=== PATIENT | male | born 1975 | race Caucasian/White ===

== ENCOUNTER → 2017-06-01 | Outpatient (CLI) | payer OTHER ==
[2017-06-01 09:49] LABS: BLOOD UREA NITROGEN 20 mg/dL (7-18)
[2017-06-01 10:01] LABS: ASPARTATE AMINO TRANSFERASE 19 U/L (15-37)
== END | disposition home or self-care (01) ==
LOC: LAB 09:24
PROVIDERS: ATTEND Family Medicine
DX: Z00.01 Encounter for general adult medical examination with abnormal findings (principal); B00.1 Herpesviral vesicular dermatitis; E78.5 Hyperlipidemia, unspecified; I86.1 Scrotal varices; R73.03 Prediabetes; E78.00 Pure hypercholesterolemia, unspecified
CPT/HCPCS: 36415; 80053; 80061; 82306; 83036; 84153; 84443; 85025; G0103

== ENCOUNTER → 2017-12-17 | Outpatient (CLI) | payer OTHER ==
[~2017-12-17] MED LIST: CHOL500015 PO; LACT1CAP11 PO; MULT-224 PO; OMEG1CAP6 PO; [UNRECOGNIZED DRUG - OTHER] PO
== END ==
LOC: STAR 14:15
PROVIDERS: ATTEND Thoracic Surgery (Cardiothoracic Vascular Surgery)
DX: Z02.9 Encounter for administrative examinations, unspecified (principal)

== ENCOUNTER 2017-12-22 05:40 | Day surgery (SDC) | payer OTHER ==
[~2017-12-22] VITALS: Ht 181.6 cm; Wt 84.2 kg
[2017-12-22] MEDS ORDERED: LACTATED RINGERS 1,000 ML IV SCH ×2 (06:16→08:19)
[2017-12-22 06:20] VITALS: BP 113/74
[2017-12-22] MEDS ORDERED: BUPIVACAINE/PF 0.5% ONE (06:54)
[2017-12-22] MEDS ORDERED: EPINEPHRINE 1 MG/ML, 1ML ONE (06:54)
[2017-12-22] MEDS ORDERED: LIDOCAINE-MPF 2% ,5ML ONE (07:04)
[2017-12-22] MEDS ORDERED: PROPOFOL 10 MG/ML, 20ML ONE (07:04)
[2017-12-22] MEDS ORDERED: ONDANSETRON 2MG/ML, 2ML ONE ×2 (07:07)
[2017-12-22] MEDS ORDERED: DEXAMETHASONE 4 MG/ML, 1ML ONE ×3 (07:08)
[2017-12-22] MEDS ORDERED: BUPIVACAINE/PF-EPI 0.5% 1:200K IM ONE (07:19)
[2017-12-22] MEDS ORDERED: ROCURONIUM 10 MG/ML,10ML ONE (07:31)
[2017-12-22] MEDS ORDERED: CEFAZOLIN 1,000 MG ONE ×2 (07:40)
[2017-12-22] MEDS ORDERED: FENTANYL PF 100 MCG/2ML ONE ×2 (07:50→08:26)
[2017-12-22] MEDS ORDERED: KETOROLAC 30 MG/1 ML ONE (08:26)
[2017-12-22] MEDS ORDERED: ACETAMINOPHEN 650 MG/20.3 ML UDC ONE (08:26)
[2017-12-22] MEDS ORDERED: OXYcodone 5 MG/5 ML ORAL.SOL UDC ONE (08:27)
[2017-12-22] MEDS ORDERED: OXYcodone 5 MG/5 ML ORAL.SOL UDC PO PRN (08:30)
[2017-12-22] MEDS ORDERED: ACETAMINOPHEN 325 MG TABLET PO PRN (08:30)
[2017-12-22] MEDS ORDERED: MEPERIDINE/PF 25MG/0.5ML IVPush PRN (08:30)
[2017-12-22] MEDS ORDERED: HYDROcodone/APAP 5/325 TABLET PO PRN (08:30)
[2017-12-22] MEDS ORDERED: HYDROcodone/APAP 7.5-325MG/15ML UDC PO PRN (08:30)
[2017-12-22] MEDS ORDERED: morphine SULFATE 10 MG/ML, 1ML IVPush PRN (08:30)
[2017-12-22] MEDS ORDERED: ONDANSETRON 2MG/ML, 2ML IVPush PRN ×2 (08:30)
[2017-12-22] MEDS ORDERED: KETOROLAC 30 MG/1 ML IVPush PRN (08:30)
[2017-12-22] MEDS ORDERED: morphine SULFATE 10 MG/ML, 1ML IV PRN (08:30)
[2017-12-22] MEDS: FENTANYL PF 100 MCG/2ML IV PRN ×2 (08:33→08:44)
== END 2017-12-22 11:10 | disposition home or self-care (01) ==
LOC: OUT 05:40
PROVIDERS: ATTEND Thoracic Surgery (Cardiothoracic Vascular Surgery)
DX: K40.90 Unilateral inguinal hernia, without obstruction or gangrene, not specified as recurrent (principal); E78.5 Hyperlipidemia, unspecified; Z98.890 Other specified postprocedural states; Z98.52 Vasectomy status; Z72.89 Other problems related to lifestyle
CPT/HCPCS: 49650; C1781; J0171; J0690; J1100; J1885; J2405; J2704; J3010; J3490; J7120

== ENCOUNTER 2018-01-13 06:10 | Day surgery (SDC) | payer OTHER ==
[~2018-01-13] VITALS: Ht 181.6 cm; Wt 85.0 kg
[2018-01-13] MEDS ORDERED: SODIUM CHLORIDE 0.9% 1,000 ML IV SCH (07:06)
[2018-01-13 07:31] VITALS: BP 106/67
[2018-01-13] MEDS ORDERED: MIDAZOLAM 1 MG/ML, 2ML ONE (07:53)
[2018-01-13] MEDS ORDERED: FENTANYL PF 100 MCG/2ML ONE (07:53)
== END 2018-01-13 10:15 ==
LOC: OUT 06:10
PROVIDERS: ATTEND Internal Medicine Gastroenterology
DX: Z12.11 Encounter for screening for malignant neoplasm of colon (principal); D12.3 Benign neoplasm of transverse colon; K63.5 Polyp of colon; K57.30 Diverticulosis of large intestine without perforation or abscess without bleeding; Z83.71 Family history of colonic polyps; Z80.0 Family history of malignant neoplasm of digestive organs
CPT/HCPCS: 45385; 88305; 99152; 99153; J2250; J3010; J7030

== ENCOUNTER 2019-04-25 19:07 | Emergency (ER) | payer OTHER ==
[~2019-04-25] VITALS: Ht 180.3 cm; Wt 78.0 kg
[~2019-04-25 19:07] MED LIST changes: -MULT-224 PO; +MULT-642 PO
[2019-04-25] MEDS ORDERED: PROMETHAZINE 25 MG/ML, 1ML ONE ×2 (19:15→19:22)
[2019-04-25 19:26] LABS: BASOPHILS # (AUTO) 0.01 x10^3/uL (0-0.1); BASOPHILS % (AUTO) 0 % (0-1); EOSINOPHILS # (AUTO) 0.06 x10^3/uL (0-0.4); EOSINOPHILS % (AUTO) 1 % (1-7); LYMPHOCYTES # (AUTO) 3.68 x10^3/uL (1-3.4); LYMPHOCYTES % (AUTO) 40 % (22-44); MD NO; MEAN CORPUSCULAR HEMOGLOBIN 30.7 pg (27.5-34.5); MEAN PLATELET VOLUME 7.2 fL (7.4-10.4); MONOCYTES # (AUTO) 0.72 x10^3/uL (0.2-0.8); MONOCYTES % (AUTO) 8 % (2-9); NEUTROPHILS # (AUTO) 4.81 x10^3/uL (1.8-6.8); NEUTROPHILS % (AUTO) 52 % (42-75); PLATELET COUNT 236 x10^3/uL (130-400); RED BLOOD COUNT 5.16 x10^6/uL (4.38-5.82); RED CELL DISTRIBUTION WIDTH 12.7 % (9.4-14.8)
[2019-04-25 19:28] VITALS: BP 145/92
[2019-04-25] MEDS ORDERED: PLEASE ENTER HEIGHT AND WEIGHT MC SCH (19:30)
[2019-04-25] MEDS ORDERED: SODIUM CHLORIDE FLUSH 10ML SYR IVF ONE (19:30)
[2019-04-25] MEDS ORDERED: DIAZEPAM 5 MG/ML, 10ML VIAL IV ONE (19:30)
[2019-04-25] MEDS ORDERED: PROMETHAZINE 25 MG/ML, 1ML IM ONE (19:30)
[2019-04-25] MEDS ORDERED: ONDANSETRON 2MG/ML, 2ML IVPush ONE (19:30)
--- NOTE | 2019-04-25 19:31 | NUR ---
PT ARRIVES TO ED WITH VERTIGO. 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 PT REPORTS THAT HE BEACAME NAUSEAS. PT REPORTS THAT HE WAS SEEN AT LAST WEEK AND HAD MODERATE AMOUNT OF FLUID BUILD UP IN POSTERIOR OF HIS RIGHT EAR. PT DENIES TRUAMA. PT DENIES VISION CHANGES. PT HAS GOOD CENTRAL PULSES AND CAP REFILL UNDER 3 SECONDS. PT CONNECTED TO ALL MONITORS AND CALL LIGHT IN REACH. AWIAITNG FURTHER ORDERS. PIVF STARTED AND LARGE BORE PIV HAS BEEN PLACED. CALL LIGHT IN REACH AND FALL TEACHIGN PROVIDED.
[2019-04-25 19:34] LABS: ALBUMIN 4.8 g/dL (3.4-5.0); ANION GAP 10 mmol/L (5-15); CALCIUM 9.4 mg/dL (8.5-10.1); CHLORIDE 103 mmol/L (98-107)
[2019-04-25 19:38] LABS: TROPONIN I < 0.015 ng/mL (0.000-0.045)
--- NOTE | 2019-04-25 20:00 | NUR ---
PT MEDICATED AND RESTING .
[2019-04-25] MEDS ORDERED: POTASSIUM CHLORIDE 20 MEQ TAB.ER.PRT ONE (20:46)
[2019-04-25] MEDS ORDERED: POTASSIUM CHLORIDE 20 MEQ TAB.ER.PRT PO ONE (21:00)
--- NOTE | 2019-04-25 21:00 | NUR ---
PT MEDICATED PER EMAR.
--- NOTE | 2019-04-25 21:30 | NUR ---
PT GIVEN KDUR.
--- NOTE | 2019-04-25 22:10 | NUR ---
Patient/Caregiver given discharge instructions and they have confirmed that they understand the instructions. Patient ambulatory with steady gait.
== END 2019-04-25 22:12 ==
LOC: ED 22:06
DX: H81.391 Other peripheral vertigo, right ear (principal); H81.01 Meniere's disease, right ear; E87.6 Hypokalemia
CPT/HCPCS: 36415; 71045; 80048; 82040; 84484; 85025; 93005; 96372; 96374; 96375; 99284; J2405; J2550; J3360

== ENCOUNTER 2019-04-28 11:43 | Outpatient (CLI) | payer OTHER ==
[2019-04-28] MEDS ORDERED: GADOBUTROL 10 MMOL/10 ML PFS ONE (14:06)
== END 2019-04-28 23:59 | disposition home or self-care (01) ==
LOC: RAD 11:43
PROVIDERS: ATTEND Otolaryngology
DX: H91.21 Sudden idiopathic hearing loss, right ear (principal); R42 Dizziness and giddiness
CPT/HCPCS: 70553; A9585

== ENCOUNTER → 2019-05-04 | Outpatient (CLI) | payer OTHER ==
[2019-05-04 07:23] LABS: BASOPHILS # (AUTO) 0.03 x10^3/uL (0-0.1); BASOPHILS % (AUTO) 0 % (0-1); EOSINOPHILS # (AUTO) 0.07 x10^3/uL (0-0.4); EOSINOPHILS % (AUTO) 1 % (1-7); LYMPHOCYTES # (AUTO) 3.64 x10^3/uL (1-3.4); LYMPHOCYTES % (AUTO) 35 % (22-44); MD NO; MEAN CORPUSCULAR HEMOGLOBIN 30.7 pg (27.5-34.5); MEAN CORPUSCULAR HGB CONC 33.1 g/dL (33.2-36.2); MEAN CORPUSCULAR VOLUME 92.7 fL (81-97); MEAN PLATELET VOLUME 6.8 fL (7.4-10.4); MONOCYTES # (AUTO) 0.67 x10^3/uL (0.2-0.8); MONOCYTES % (AUTO) 7 % (2-9); NEUTROPHILS # (AUTO) 5.97 x10^3/uL (1.8-6.8); NEUTROPHILS % (AUTO) 58 % (42-75); PLATELET COUNT 237 x10^3/uL (130-400); RED BLOOD COUNT 4.98 x10^6/uL (4.38-5.82); RED CELL DISTRIBUTION WIDTH 13.4 % (9.4-14.8)
[2019-05-04 07:36] LABS: ALANINE AMINOTRANSFERASE 24 U/L (12-78); ALBUMIN 3.6 g/dL (3.4-5.0); ANION GAP 4 mmol/L (5-15); CALCIUM 8.6 mg/dL (8.5-10.1); CHLORIDE 111 mmol/L (98-107); CHOLESTEROL, TOTAL 184 mg/dL (140-239); CREATININE 0.94 mg/dL (0.7-1.3); TRIGLYCERIDES 55 mg/dL (50-200); VLDL CHOLESTEROL 11 mg/dL (0-25)
[2019-05-04 07:38] LABS: ALKALINE PHOSPHATASE 44 U/L (45-117); BILIRUBIN,TOTAL 0.6 mg/dL (0.2-1.0); CHOL/HDL RATIO 2.3; HDL CHOL % 43 % (26-37); HDL CHOLESTEROL (DIRECT) 79 mg/dL (40-60); LDL CHOLESTEROL,CALCULATED 94 mg/dL (54-169); LDL/HDL RATIO 1.2 (0.5-3.0); TOTAL PROTEIN 6.2 g/dL (6.4-8.2)
== END | disposition home or self-care (01) ==
LOC: LAB 07:09
PROVIDERS: ATTEND Family Medicine
DX: E78.5 Hyperlipidemia, unspecified (principal); E55.9 Vitamin D deficiency, unspecified; R53.83 Other fatigue; E78.00 Pure hypercholesterolemia, unspecified; E29.9 Testicular dysfunction, unspecified
CPT/HCPCS: 36415; 80053; 80061; 82306; 85025

== ENCOUNTER → 2019-10-27 | Outpatient (CLI) | payer OTHER ==
[2019-10-27 12:48] LABS: BASOPHILS # (AUTO) 0.01 x10^3/uL (0-0.1); BASOPHILS % (AUTO) 0 % (0-1); EOSINOPHILS # (AUTO) 0.03 x10^3/uL (0-0.4); EOSINOPHILS % (AUTO) 1 % (1-7); LYMPHOCYTES # (AUTO) 1.63 x10^3/uL (1-3.4); LYMPHOCYTES % (AUTO) 28 % (22-44); MD NO; MEAN CORPUSCULAR HEMOGLOBIN 30.5 pg (27.5-34.5); MEAN CORPUSCULAR HGB CONC 33.3 g/dL (33.2-36.2); MEAN CORPUSCULAR VOLUME 91.4 fL (81-97); MEAN PLATELET VOLUME 7.1 fL (7.4-10.4); MONOCYTES # (AUTO) 0.44 x10^3/uL (0.2-0.8); MONOCYTES % (AUTO) 8 % (2-9); NEUTROPHILS # (AUTO) 3.77 x10^3/uL (1.8-6.8); NEUTROPHILS % (AUTO) 64 % (42-75); PLATELET COUNT 217 x10^3/uL (130-400); RED BLOOD COUNT 4.95 x10^6/uL (4.38-5.82); RED CELL DISTRIBUTION WIDTH 12.8 % (9.4-14.8)
[2019-10-27 12:57] LABS: ALANINE AMINOTRANSFERASE 29 U/L (12-78); ALBUMIN 4.1 g/dL (3.4-5.0); ANION GAP 5 mmol/L (5-15); CALCIUM 8.8 mg/dL (8.5-10.1); CHLORIDE 107 mmol/L (98-107); CHOLESTEROL, TOTAL 210 mg/dL (140-239)
[2019-10-27 12:59] LABS: ALKALINE PHOSPHATASE 54 U/L (45-117); HDL CHOLESTEROL (DIRECT) 72 mg/dL (40-60); TOTAL PROTEIN 6.9 g/dL (6.4-8.2); TRIGLYCERIDES 28 mg/dL (50-200); VLDL CHOLESTEROL 6 mg/dL (0-25)
[2019-10-27 14:16] LABS: CHOL/HDL RATIO 2.9; HDL CHOL % 34 % (26-37); LDL CHOLESTEROL,CALCULATED 132 mg/dL (54-169); LDL/HDL RATIO 1.8 (0.5-3.0)
== END | disposition home or self-care (01) ==
LOC: LAB 12:26
PROVIDERS: ATTEND Family Medicine
DX: Z13.21 Encounter for screening for nutritional disorder (principal); E74.39 Other disorders of intestinal carbohydrate absorption; E78.5 Hyperlipidemia, unspecified
CPT/HCPCS: 36415; 80053; 80061; 82306; 85025; 86787